=== PATIENT | male | born 2000 | race Asian ===

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

== ENCOUNTER 2018-09-24 19:48 | Emergency (ER) | payer OTHER ==
[~2018-09-24] VITALS: Ht 170.2 cm; Wt 68.0 kg
[2018-09-24 19:51] VITALS: BP 139/78
--- NOTE | 2018-09-24 19:53 | NUR ---
PT AMBULATORY TO ER LOBBY W/ STEADY GAIT IN STABLE CONDITION.
--- NOTE | 2018-09-24 20:40 | NUR ---
PATIENT AMBULATED TO ER BED 8.
--- NOTE | 2018-09-24 20:40 | NUR ---
17/M came in w c/o blister to Rt hand and left knee. Rt hand noted with blister, intact, -redness, -s/s of infection. Lt knee with flat blister, -redness, -s/s of infection. Denies N/V/D, fever/chills. Denies PMH
--- NOTE | 2018-09-24 20:55 | NUR ---
PT MOVED TO CHAIR E
--- NOTE | 2018-09-24 20:56 | NUR ---
Dr. Pyle evaluating patient
--- NOTE | 2018-09-24 21:13 | NUR ---
Patient discharged with v/s stable. Written and verbal after care instructions given and explained. Patient alert, oriented and verbalized understanding of instructions. Ambulatory with steady gait. All questions addressed prior to discharge. ID band removed. Patient advised to follow up with PMD. Rx of keflex, tylenol given. Patient educated on indication of medication including possible reaction and side effects. Opportunity to ask questions provided and answered.
[2018-09-24 21:15] VITALS: BP 108/72
== END 2018-09-24 21:13 | disposition home or self-care (01) ==
LOC: MED 19:48
DX: S60.821A Blister (nonthermal) of right wrist, initial encounter (principal); S80.262A Insect bite (nonvenomous), left knee, initial encounter; W57.XXXA Bitten or stung by nonvenomous insect and other nonvenomous arthropods, initial encounter; Y93.89 Activity, other specified; Y92.89 Other specified places as the place of occurrence of the external cause; Y99.8 Other external cause status
CPT/HCPCS: 99283

== ENCOUNTER 2018-09-25 18:26 | Emergency (ER) | payer OTHER ==
[~2018-09-25] VITALS: Ht 170.2 cm; Wt 68.0 kg
[2018-09-25 18:30] VITALS: BP 128/69
--- NOTE | 2018-09-25 18:35 | NUR ---
17/m BIB AELF FOR RECHECKING BUG BITES." MY PAPERWORK TOLD ME TO COME BACK SO I DID. PMH: KEFLEX, TYLENOL. PATIENT STATES PAIN OF 6/10 AT THIS TIME; VSS; PATIENT POSITIONED FOR COMFORT; HOB ELEVATED; BEDRAILS UP X2; BED DOWN. ER MD MADE AWARE OF PT STATUS.
[2018-09-25 18:44] VITALS: BP 128/69
--- NOTE | 2018-09-25 18:44 | NUR ---
Patient discharged with v/s stable. Written and verbal after care instructions given and explained. Patient verbalized understanding. Ambulatory with steady gait. All questions addressed prior to discharge. Advised to follow up with PMD.
== END 2018-09-25 18:44 | disposition home or self-care (01) ==
LOC: MED 18:26
DX: S60.521A Blister (nonthermal) of right hand, initial encounter (principal); Z79.1 Long term (current) use of non-steroidal anti-inflammatories (NSAID); X58.XXXA Exposure to other specified factors, initial encounter; Y93.89 Activity, other specified; Y92.89 Other specified places as the place of occurrence of the external cause; Y99.8 Other external cause status
CPT/HCPCS: 99283

== ENCOUNTER 2018-12-15 20:32 | Emergency (ER) | payer OTHER ==
[~2018-12-15] VITALS: Ht 170.2 cm; Wt 68.0 kg
[2018-12-15 20:34] VITALS: BP 124/62
--- NOTE | 2018-12-15 20:34 | NUR ---
AMBULATED TO ER BED 2
--- NOTE | 2018-12-15 20:47 | NUR ---
PT TO ED WITH C/O COLD SYMPTOMS AND SORE THROAT X 2 DAYS. DENIES N/V/D. NO S/S OF DISTRESS NOTED. PT PLACED INTO BED, PENDING MD [facility]--DENIES RX--DENIES
[2018-12-15] MEDS ORDERED: KETOROLAC 30 MG/ML VIAL IM ONE (21:20)
[2018-12-15 21:56] VITALS: BP 121/73
--- NOTE | 2018-12-15 21:56 | NUR ---
Patient discharged with v/s stable. Written and verbal after care instructions given and explained. Patient alert, oriented and verbalized understanding of instructions. Ambulatory with steady gait. All questions addressed prior to discharge. ID band removed. Patient advised to follow up with PMD. Rx of TAMIFLU, ACETAMINOPHEN, NAPROXEN given. Patient educated on indication of medication including possible reaction and side effects. Opportunity to ask questions provided and answered.
== END 2018-12-15 21:56 | disposition home or self-care (01) ==
LOC: MED 20:32
DX: J10.1 Influenza due to other identified influenza virus with other respiratory manifestations (principal); Z79.899 Other long term (current) drug therapy
CPT/HCPCS: 36415; 87081; 87804; 96372; 99283; J1885

== ENCOUNTER 2018-12-17 14:52 | Emergency (ER) | payer OTHER ==
[~2018-12-17] VITALS: Ht 170.2 cm; Wt 68.0 kg
[2018-12-17 15:15] VITALS: BP 132/76
--- NOTE | 2018-12-17 15:18 | NUR ---
PT. TO LOBBY , RR EVEN AND UNLABORED. STEADY GAIT
--- NOTE | 2018-12-17 16:10 | NUR ---
PT. BIB MOTHER DUE TO BILAT EAR PAIN X THIS MORNING. PT STATES " I WAS HERE TWO NIGHTS AGO AND GOT DIAGNOSED WITH THE FLU AND GIVEN MEDICATION BUT I WOKE UP AND MY EARS HURT". AFEBRILE AT THIS TIME. . DENIES N/V/D; SKIN IS PINK/WARM/DRY; AAOX4 WITH EVEN AND STEADY GAIT; LUNGS CLEAR BL; HR EVEN AND REGULAR; PT DENIES ANY FEVER, CP, SOB AT THIS TIME; PATIENT STATES PAIN OF 3/10 AT THIS TIME; VSS; PATIENT POSITIONED FOR COMFORT; HOB ELEVATED; BEDRAILS UP X2; BED DOWN. ER MD MADE AWARE OF PT STATUS.
[2018-12-17 16:25] VITALS: BP 124/67
== END 2018-12-17 16:25 | disposition home or self-care (01) ==
LOC: MED 14:52
DX: H66.93 Otitis media, unspecified, bilateral (principal); Z79.1 Long term (current) use of non-steroidal anti-inflammatories (NSAID)
CPT/HCPCS: 99283